=== PATIENT | female | born 2000 | race Caucasian/White ===

== ENCOUNTER 2022-04-18 08:02 | Emergency (ER) | payer SELFPAY ==
[~2022-04-18] VITALS: Ht 149.9 cm; Wt 48.1 kg
[2022-04-18 08:11] VITALS: BP_SYST 117
--- NOTE | 2022-04-18 08:11 | NUR ---
Patient to ER bed H2 to gown for evaluation. Side rails up.
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
--- NOTE | 2022-04-18 08:17 | NUR ---
ER DR. CARDOZA EXAMINING PT
--- NOTE | 2022-04-18 08:58 | NUR ---
Patient & CHP given written and verbal discharge instructions and verbalizes [employer] for questions provided and answered.
[2022-04-18 09:00] VITALS: BP_SYST 117
== END 2022-04-18 09:00 | disposition home or self-care (01) ==
LOC: SED 08:02
DX: M54.2 Cervicalgia (principal); Y04.0XXA Assault by unarmed brawl or fight, initial encounter; Y93.89 Activity, other specified; Y92.89 Other specified places as the place of occurrence of the external cause; Y99.8 Other external cause status
CPT/HCPCS: 99283